=== PATIENT | male | born 1985 | race Caucasian/White ===

== ENCOUNTER 2018-02-14 17:01 | Emergency (ER) | payer OTHER ==
--- NOTE | 2018-02-14 17:21 | ERPHSYRPT ---
- History of Present Illness Time Seen by Provider: 02/14/18 17:19 Source: patient Exam Limitations: no limitations Patient Subjective Stated Complaint: pt was bit by friends pit bull dog about 45 mins ago, bite to lip and nose, no other injury . no dog was on a chain Triage Nursing Assessment: pt arrived by pov, anxious, alert, resp easy, has laceration base of right nostril, and has part of upper lip with flap laceration , and abrasion to lower lip Physician History: 32 y/o white male presents to ED with dog bites to face. tetanus utd- 3 years ago. occurred approx 45 minutes pct. Timing/Duration: today Quality: painful Severity: mild Location: face, other (lip-upper) Possible Causes: other (dog bite) Associated Symptoms: No difficulty breathing, No fever, No sore throat Allergies/Adverse Reactions: No Known Drug Allergies Allergy (Verified 02/14/18 17:14) Hx Tetanus, Diphtheria Vaccination/Date Given: Yes (3 years ago) Hx Influenza Vaccination/Date Given: No Hx Pneumococcal Vaccination/Date Given: No Immunizations Up to Date: Yes - Review of Systems Constitutional: No Symptoms, No Fever Eyes: No Symptoms, No Eye Pain Ears, Nose, & Throat: No Symptoms, No Ear Pain Respiratory: No Symptoms, No Cough Cardiac: No Symptoms, No Chest Pain Abdominal/Gastrointestinal: No Symptoms, No Abdominal Pain, No Nausea, No Vomiting Genitourinary Symptoms: No Symptoms, No Dysuria, No Frequency, No Hematuria Musculoskeletal: No Symptoms Skin: Other (laceration) Neurological: No Symptoms Psychological: No Symptoms Endocrine: No Symptoms Hematologic/Lymphatic: No Symptoms Immunological/Allergic: No Symptoms All Other Systems: Reviewed and Negative - Past Medical History Pertinent Past Medical History: Yes Neurological History: No Pertinent History ENT History: No Pertinent History Cardiac History: No Pertinent History Respiratory History: No Pertinent History Endocrine Medical History: No Pertinent History Musculoskeletal History: Other GI Medical History: No Pertinent History History: No Pertinent History Psycho-Social History: Other Male Reproductive Disorders: No Pertinent History Other Medical History: POST TRAUMATIC STRESS SYNDROME,. 7 OR 8 SCREWS PRESENT IN RIGHT ANKLE FROM PREVIOUS ACCIDENT - Past Surgical History Past Surgical History: No Neuro Surgical History: No Pertinent History Cardiac: No Pertinent History Respiratory: No Pertinent History Gastrointestinal: No Pertinent History Genitourinary: No Pertinent History Musculoskeletal: Orthopedic Surgery Male Surgical History: No Pertinent History Other Surgical History: RIGHT ANKLE - Social History Smoking Status: Never smoker How long have you smoked: 10 Exposure to second hand smoke: No Drug Use: none Patient Lives Alone: No - Nursing Vital Signs Nursing Vital Signs: Initial Vital Signs Temperature 98.6 F 02/14/18 17:06 Respiratory Rate 18 02/14/18 17:06 Pain Scale Pain Intensity 6 - Physical Exam General Appearance: mild distress, alert, anxiety Eye Exam: PERRL/EOMI Ears, Nose, Throat Exam: moist mucous membranes, other (tissue loss right upper lip and left upper lip with v shaped flap. ) Neck Exam: normal inspection, non-tender, supple, full range of motion Respiratory Exam: normal breath sounds, lungs clear, airway intact, No chest tenderness, No respiratory distress, No wheezing, No stridor Cardiovascular Exam: regular rate/rhythm, normal heart sounds, normal peripheral pulses Gastrointestinal/Abdomen Exam: soft, normal bowel sounds, No tenderness, No guarding, No rebound Rectal Exam: not done Back Exam: normal inspection Extremity Exam: normal inspection Neurologic Exam: alert, oriented x 3, cooperative, shear operator automatic II-XII nml as tested Skin Exam: normal color, laceration (upper lip middle with right upper tissue loss) Lymphatic Exam: No adenopathy SpO2 Interpretation: normal Oxygen Delivery: Room Air Procedures - Laceration/Wound Repair Upper Lip Wound Location: face (lip) Wound Length (cm): 2.5 Wound's Depth, Shape: superficial Wound Explored: clean Hibiclens Prep: Yes Anesthesia: local, 1% Lidocaine Wound Repaired With: sutures Suture Size/Type: 4-0, vicryl Number of Sutures: 10 Layer Closure?: No - Course Nursing assessment & vital signs reviewed: Yes Ordered Tests: Medication Summary Discontinued Medications Generic Name Dose Route Start Last Admin Trade Name Rodq PRN Reason Stop Dose Admin Lidocaine HCl Confirm 02/14/18 17:28 Xylocaine 1% Hcl 20 Ml Mdv Administered 02/14/18 17:29 Dose 10 ml .ROUTE .STgantto-MED ONE - Progress Progress: improved Progress Note: 02/14/18 19:10 told pt to follow up with plastic surgeon tomorrow for further management Counseled pt/family regarding: diagnosis, need for follow-up - Departure Time of Disposition: 19:11 Departure Disposition: Home Clinical Impression: Dog bite, Lip laceration Condition: Stable Critical Care Time: No Additional Instructions: keep dry for 24 hours. after 24 hours may wash daily and apply antibiotic ointment daily. follow up with a plastic surgeon tomorrow for further management. keep all abrasions clean with soap and water. ice pack 3 times daily for 2 days. no need for suture removal these are dissolvable sutures. Prescriptions: Hydrocodone/APAP 5/325 [[place] 5/325 mg] 1 each PO Q12H PRN PRN #6 tablet MDD 2 PRN Reason: Pain
[2018-02-14] MEDS ORDERED: XYLOCAINE 1% HCL 20 ML MDV ONE (17:28)
[2018-02-14] MEDS ORDERED: NORCO 5/325 MG PO ONE (19:10)
[2018-02-14] MEDS ORDERED: NORCO 5/325 MG ONE (19:27)
[2018-02-14 19:45] VITALS: BP 136/90; PULSE 96; O2SAT 95
== END 2018-02-14 19:40 | disposition home or self-care (01) ==
LOC: ED 17:01
DX: S01.511A Laceration without foreign body of lip, initial encounter (principal); W54.0XXA Bitten by dog, initial encounter; Y92.89 Other specified places as the place of occurrence of the external cause
CPT/HCPCS: 12011; 96372; 99283; A9270-GY